=== PATIENT | female | born 1940 | race Caucasian/White ===

== ENCOUNTER 2022-02-05 11:47 | Emergency (ER) | payer OTHER ==
[~2022-02-05] VITALS: Ht 157.5 cm; Wt 81.6 kg
[2022-02-05] MEDS ORDERED: GLIPIZIDE XL10 MG PO (12:33)
[2022-02-05] MEDS ORDERED: LYRICA50 MG PO (12:34)
[2022-02-05] MEDS ORDERED: PLAVIX75 MG PO (12:34)
[2022-02-05] MEDS ORDERED: ACTOS15 MG PO (12:34)
[2022-02-05] MEDS ORDERED: LIPITOR40 MG PO (12:34)
[2022-02-05] MEDS ORDERED: COZAAR50 MG PO (12:35)
[2022-02-05] MEDS ORDERED: PEPCID AC20 MG PO (16:07)
== END 2022-02-05 16:29 | disposition home or self-care (01) ==
LOC: ER 11:47
DX: N39.0 Urinary tract infection, site not specified (principal); U07.1 COVID-19; N28.1 Cyst of kidney, acquired; E11.9 Type 2 diabetes mellitus without complications; Z79.84 Long term (current) use of oral hypoglycemic drugs; I10 Essential (primary) hypertension